=== PATIENT | female | born 1965 | race Caucasian/White ===

== ENCOUNTER → 2016-11-04 | Outpatient (CLI) | payer MEDICARE, MEDICAID ==
[~2016-11-04] MED LIST: ACET30TAB PO; CITALOPRAM PO; CLON0.5T PO; CLON1TAB PO; CYMBALTA PO; DIVALPROEX PO; DULO30CA PO; EYE0.0254 OU; HYDR-3719 PO; KEFL500C7 PO; LYRI150C PO; NORCOTAB PO; SOMA350T PO; TIZANIDINE PO; TRAZ100T2 PO; TRAZ100T4 PO; motrin PO; vicodin PO
[2016-11-04 11:55] LABS: BASO # 0.1 K/mm3 (0.0-0.2); BASO % 0.6 % (0.0-1.0); EOS # 0.1 K/mm3 (0.0-0.50); EOS % 1.1 % (0.0-3.0); LARGE UNSTAINED CELL # 0.3 K/mm3 (0.0-0.4); LARGE UNSTAINED CELL % 2.2 % (0.0-4.0); LYMPH % 32.5 % (24.0-44.0); MEAN CORPUSCULAR HEMOGLOBIN 32.6 pg (27.0-33.0); MEAN CORPUSCULAR HGB CONC 33.4 g/dl (32.0-36.5); MEAN CORPUSCULAR VOLUME 97.5 fl (80.0-96.0); MONO # 0.4 K/mm3 (0.0-0.8); MONO % 3.6 % (0.0-5.0); NEUTROPHILS # 7.3 K/mm3 (1.8-7.7); NEUTROPHILS % 59.9 % (36.0-66.0); PLATELET COUNT, AUTOMATED 258 k/mm3 (150-450); RED CELL DISTRIBUTION WIDTH 12.8 % (11.5-14.5); WHITE BLOOD COUNT 12.2 K/mm3 (4.0-10.0)
[2016-11-04 12:15] LABS: ALBUMIN 3.4 GM/DL (3.2-5.2); ALBUMIN/GLOBULIN RATIO 0.89 (1.00-1.93); ALKALINE PHOSPHATASE 72 U/L (45-117); ALT/SGPT 24 U/L (12-78); ANION GAP 7 MEQ/L (8-16); AST/SGOT 10 U/L (15-37); BILIRUBIN,TOTAL 0.3 MG/DL (0.2-1.0); BLOOD UREA NITROGEN 19 MG/DL (7-18); CALCIUM LEVEL 9.3 MG/DL (8.5-10.1); CARBON DIOXIDE LEVEL 29 MEQ/L (21-32); CHLORIDE LEVEL 107 MEQ/L (98-107); GLOMERULAR FILTRATION RATE > 60.0 (>51); GLUCOSE, FASTING 91 MG/DL (70-105); POTASSIUM SERUM 4.9 MEQ/L (3.5-5.1); SODIUM LEVEL 143 MEQ/L (136-145); TOTAL PROTEIN 7.2 GM/DL (6.4-8.2)
--- NOTE | 2016-11-04 17:26 | ECGEPIP ---
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 Left axis deviation. Prominent voltage in aVL LVH by Kurt criteria Slow precordial R-wave progression. Nonspecific inferior/apical ST/T-wave abnormalities. No change from 03/27/14. Electronically Signed On 11-04-2016 17:26:39 EST by Reji Bliss
== END ==
LOC: M LAB 11:07
PROVIDERS: ATTEND Podiatrist
DX: Z01.810 Encounter for preprocedural cardiovascular examination (principal); R94.31 Abnormal electrocardiogram [ECG] [EKG]

== ENCOUNTER → 2016-11-17 | Day surgery (SDC) | payer MEDICARE, MEDICAID ==
[~2016-11-17] VITALS: Ht 160 cm; Wt 80.7 kg
[~2016-11-17] MED LIST changes: +BACITRACIN PWD 50,000 UNITS VIAL As Ordered ONE; +BACITRACIN PWD 50,000 UNITS VIAL IR ONE; +BUPIVACAINE HCL 0.5% 30 ML VIAL As Ordered ONE; +BUPIVACAINE HCL 0.5% 30 ML VIAL SC ONE; +KETAMINE HCL 200 MG/20 ML VIAL As Ordered ONE; +KETOROLAC 60 MG/2 ML VIAL (J1885) As Ordered ONE; +LIDOCAINE 2% INJ 100 MG/5 ML SDV (FOR ANES.) As Ordered ONE; +LIDOCAINE 2% MDV 20 ML VIAL As Ordered ONE; +LIDOCAINE 2% MDV 20 ML VIAL SC ONE; +LR 1,000 ML IV SCH; +MIDAZOLAM INJ 2 MG/2 ML VIAL (J2250) As Ordered ONE; +NEOSPORIN GU IRRIG 20 ML VIAL IR ONE; +ONDANSETRON 4MG/2ML VIAL (J2405) As Ordered ONE; +PERCOCET 5MG/325MG TAB PO PRN; +PROPOFOL 200 MG/20 ML VIAL As Ordered ONE; +ceFAZolin SOD 1 GM in D5W MINI-BAG PLUS 50 ML IV ONE; +dexameTHASONE 4 MG/ML 1ML VIAL (J1100) As Ordered ONE; +dexameTHASONE 4 MG/ML 1ML VIAL (J1100) XX ONE; +diphenhydrAMINE INJ 50MG/ML VIAL (J1200) IV PRN; +fentaNYL 100 MCG/2 ML INJECTION (J3010) As Ordered ONE
--- NOTE | 2016-11-17 12:29 | REP ---
REASON: Status post [place] infraction correction. COMPARISON: 05/18/2016. There is a reparative plug seen in the head of the second metatarsal resurfacing the proximal portion of the second metatarsophalangeal joint. Signed by Holger Lin DO 11/18/2016 11:15 A
[2016-11-17 13:15] VITALS: BP 134/80
--- NOTE | 2016-11-17 14:05 | RO ---
DATE OF PROCEDURE: 11/17/2016 PREOPERATIVE DIAGNOSIS: [place]'s infraction second metatarsal phalangeal joint left foot. POSTPROCEDURE DIAGNOSIS: [place]'s infraction second metatarsal phalangeal joint left foot. PROCEDURE: Debridement and insertion of Arthrosurface HemiCAP implant size 12.12 second metatarsal left foot. SURGEON: Reji Winter DPM COAL FEEDER OPERATOR: None. ANESTHESIA: Local MAC IRRIGATION: Dilute bacitracin, neomycin and polymyxin B solution. HEMOSTASIS: Ankle tourniquet at 200 mmHg for 40 minutes. IMPLANT UTILIZED: 12/12 Arthrosurface HemiCAP implant. DESCRIPTION OF PROCEDURE: On 11/17/2016, this 51-year-old white female was taken from her hospital room to the operating room and placed on the operating room table in a supine position. Following the induction of IV sedation, local and regional anesthesia, the left lower extremity was prepped and draped in the usual aseptic manner. Attention was directed to the patient's left foot where the following procedure was performed. DEBRIDEMENT AND INSERTION OF ARTHROSURFACE HEMICAP IMPLANT 12/12 SECOND METATARSAL LEFT FOOT: Attention was directed to the patients foot where a 4 cm incision was placed over the second metatarsal phalangeal joint. Dissection was carried down and the extensor tendons were retracted in a lateral direction. A linear capsulotomy was performed in the same plane as the original skin incision and exposure was delivered to the dorsal surface of the second metatarsal phalangeal joint. Spurring was noted on the proximal phalanx which was rongeured smooth. A small joint loose body was noted on the dorsal lateral aspect of the joint which was removed. Utilizing a guidewire, the guidewire with fluoroscopy control was placed down the shaft of the second metatarsal. This was confirmed with arthroscopy. Utilizing a 7 mm drill bit, the medullary shaft was reamed. Utilizing a 1.5 mm reamer, the surface was reamed and utilizing a trial spacer adequate fit was noted on the second metatarsal and the remaining spurring around the joint surface was debrided and then filed with a hand held rasp. The wound was flushed with copious amounts of dilute bacitracin, neomycin and polymyxin B solution. A 12/12 Arthrosurface HemiCAP implant was then placed into the post and inserted. Adequate motion was noted of the second metatarsal phalangeal joint. The wound was flushed with copious amounts of dilute bacitracin, neomycin and polymyxin B solution. The capsule was then coapted and maintained with #3-0 Vicryl in a simple interrupted type fashion. Subcutaneous tissue coapted and maintained utilizing #4-0 Monocryl in a simple interrupted type fashion. The skin incision was coapted and maintained using #4-0 Prolene in a simple interrupted and horizontal mattress type fashion. Attention was directed towards bandaging where a sterile compressive bandage was applied consisting of Adaptic, 4x4s, 4x4 splints, Ludy, Kerlix and Coban. The ankle pneumatic tourniquet was rapidly deflated and instantaneous capillary filling time was noted in digits 1- 5 of the patients left foot. The patient having apparently tolerated the surgical procedure well was taken from the OR to the recovery room with vital signs stable and the patient afebrile for further monitoring by the anesthesia department. All surgical specimens removed during the operative procedure were sent to pathology for gross and microscopic examination. Postoperative instructions will be given upon discharge. MICHELLE
== END | disposition home or self-care (01) ==
LOC: M SDC 08:23
PROVIDERS: ATTEND Podiatrist
DX: M92.72 Juvenile osteochondrosis of metatarsus, left foot (principal); E78.5 Hyperlipidemia, unspecified; L40.9 Psoriasis, unspecified; F41.9 Anxiety disorder, unspecified; F32.9 Major depressive disorder, single episode, unspecified; Z79.899 Other long term (current) drug therapy; Z87.891 Personal history of nicotine dependence
CPT/HCPCS: 28899; 73630; 88300; 97116; C1776; G8978; G8979; G8980; J0690; J1100; J1200; J1885; J2250; J2405; J3010

== ENCOUNTER 2017-01-04 19:43 | Emergency (ER) | payer MEDICARE, MEDICAID ==
[~2017-01-04] VITALS: Ht 157.5 cm; Wt 75.7 kg
[~2017-01-04 19:43] MED LIST changes: -BACITRACIN PWD 50,000 UNITS VIAL As Ordered ONE; -BACITRACIN PWD 50,000 UNITS VIAL IR ONE; -BUPIVACAINE HCL 0.5% 30 ML VIAL As Ordered ONE; -BUPIVACAINE HCL 0.5% 30 ML VIAL SC ONE; -KETAMINE HCL 200 MG/20 ML VIAL As Ordered ONE; -KETOROLAC 60 MG/2 ML VIAL (J1885) As Ordered ONE; -LIDOCAINE 2% INJ 100 MG/5 ML SDV (FOR ANES.) As Ordered ONE; -LIDOCAINE 2% MDV 20 ML VIAL As Ordered ONE; -LIDOCAINE 2% MDV 20 ML VIAL SC ONE; -LR 1,000 ML IV SCH; -MIDAZOLAM INJ 2 MG/2 ML VIAL (J2250) As Ordered ONE; -NEOSPORIN GU IRRIG 20 ML VIAL IR ONE; -ONDANSETRON 4MG/2ML VIAL (J2405) As Ordered ONE; -PERCOCET 5MG/325MG TAB PO PRN; -PROPOFOL 200 MG/20 ML VIAL As Ordered ONE; -ceFAZolin SOD 1 GM in D5W MINI-BAG PLUS 50 ML IV ONE; -dexameTHASONE 4 MG/ML 1ML VIAL (J1100) As Ordered ONE; -dexameTHASONE 4 MG/ML 1ML VIAL (J1100) XX ONE; -diphenhydrAMINE INJ 50MG/ML VIAL (J1200) IV PRN; -fentaNYL 100 MCG/2 ML INJECTION (J3010) As Ordered ONE
[2017-01-04] MEDS ORDERED: PREDOPD OD (19:52)
[2017-01-04] MEDS ORDERED: OMEP40CA2 PO (19:52)
[2017-01-04] MEDS ORDERED: PERCOCET 5MG/325MG TAB PO ONE (21:00)
--- NOTE | 2017-01-04 21:50 | REPUSA ---
CT of the cervical spine Clinical history: Pain, fall. Technique: Multiple axial CT images were obtained through the cervical spine without administration o f contrast. Coronal and sagittal 3-D reconstructed images were also obtained. Comparison: None. Findings: The cervical vertebral bodies are in satisfactory positioning and alignment. No fractures or dislocat ions are demonstrated. The odontoid process is intact. There is a moderate disc osteophyte complex wi th degenerative disc disease at C6/C7. Intervertebral disc spaces are otherwise well-maintained. The re is no evidence of facet subluxation. The neural foramen appear grossly patent. The cervical crania l junction is intact. The cervical spinal canal demonstrates normal caliber and contour without evide nce of spinal stenosis. The surrounding soft tissues are within normal limits. Impression: No acute fracture or osseous abnormality. Moderate disc osteophyte complex at C6/C7.
[2017-01-04] MEDS ORDERED: IBUP600T26 PO (22:19)
[2017-01-04 22:43] VITALS: BP 133/69
--- NOTE | 2017-01-05 08:10 | REP ---
Left wrist series: Four views. History: Injury in a fall. Findings: Four views of the left wrist demonstrate mild osteoarthritic spurring at the first carpometacarpal articulation. There is a tiny accessory ossicle adjacent to the ulnar styloid. There is minimal radiocarpal spurring and irregularity. No fracture or subluxation is seen. Impression: No fracture noted. Minimal osteoarthritic spurring. Signed by Jacques Phelan MD 01/05/2017 01:37 P
--- NOTE | 2017-01-05 08:11 | REP ---
Left foot series: Four views. History: Injury in a fall. Comparison left foot radiographs are from November 17, 2016. Findings: The distal end of the second metatarsal has been replaced with a prosthetic hemiarthroplasty. There is mild spurring at the base of the second proximal phalanx. There is no evidence of fracture or subluxation. An accessory navicular ossicle is seen. Impression: No acute bony abnormality. Signed by Jacques Phelan MD 01/05/2017 01:37 P
== END 2017-01-04 22:49 | disposition home or self-care (01) ==
LOC: M ED 20:53
DX: T14.8 Other injury of unspecified body region (principal); V19.9XXA Pedal cyclist (driver) (passenger) injured in unspecified traffic accident, initial encounter; Y92.410 Unspecified street and highway as the place of occurrence of the external cause; Y93.9 Activity, unspecified; Y99.9 Unspecified external cause status; Z87.891 Personal history of nicotine dependence; M25.78 Osteophyte, vertebrae; M18.12 Unilateral primary osteoarthritis of first carpometacarpal joint, left hand; Z79.899 Other long term (current) drug therapy; Z88.5 Allergy status to narcotic agent; Z91.89 Other specified personal risk factors, not elsewhere classified

== ENCOUNTER 2017-06-01 06:33 | Day surgery (SDC) | payer MEDICARE, MEDICAID ==
[~2017-06-01] VITALS: Ht 160 cm; Wt 80.7 kg
[~2017-06-01 06:33] MED LIST changes: -EYE0.0254 OU; +EYE0.0259 OU; +IBUP-1022 PO; +KEFL500C17 PO; -KEFL500C7 PO; +OMEP40CA2 PO; +PREDOPD OD; +TRAZ-136 PO; -TRAZ100T4 PO
[2017-06-01] MEDS ORDERED: LR 1,000 ML IV SCH ×2 (06:45→09:00)
[2017-06-01] MEDS ORDERED: LIDOCAINE 2% MDV 20 ML VIAL As Ordered ONE (06:47)
[2017-06-01] MEDS ORDERED: BUPIVACAINE HCL 0.5% 30 ML VIAL As Ordered ONE (06:47)
[2017-06-01] MEDS ORDERED: dexameTHASONE 4 MG/ML 1ML VIAL (J1100) As Ordered ONE (06:48)
[2017-06-01] MEDS ORDERED: NEOSPORIN GU IRRIG 20 ML VIAL As Ordered ONE (06:49)
[2017-06-01] MEDS ORDERED: BACITRACIN PWD 50,000 UNITS VIAL As Ordered ONE (06:49)
[2017-06-01] MEDS ORDERED: MIDAZOLAM INJ 2 MG/2 ML VIAL (J2250) As Ordered ONE (07:42)
[2017-06-01] MEDS ORDERED: fentaNYL 100 MCG/2 ML INJECTION (J3010) As Ordered ONE (07:43)
[2017-06-01] MEDS ORDERED: PROPOFOL 200 MG/20 ML VIAL As Ordered ONE ×2 (07:46→07:53)
[2017-06-01] MEDS ORDERED: LIDOCAINE 2% INJ 100 MG/5 ML SDV (FOR ANES.) As Ordered ONE (07:46)
[2017-06-01] MEDS ORDERED: PERCOCET 5MG/325MG TAB PO PRN (09:00)
[2017-06-01] MEDS ORDERED: fentaNYL 100 MCG/2 ML INJECTION (J3010) IV PRN (09:00)
[2017-06-01] MEDS ORDERED: HYDROmorphone HCL 1 MG/ML SYRINGE (J1170) IV PRN (09:00)
[2017-06-01] MEDS ORDERED: ONDANSETRON 4MG/2ML VIAL (J2405) IV PRN (09:00)
[2017-06-01 09:15] VITALS: BP 175/83
--- NOTE | 2017-06-01 12:20 | RO ---
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 PROCEDURE PERFORMED: Excision of neuroma 3rd intermetatarsal space, left foot. SURGEON: Reji Winter DPM TAX ATTORNEY: None. ANESTHESIA: Local, monitored anesthesia care (MAC). IRRIGATION: Dilute bacitracin, neomycin, and polymyxin B solution. Ankle pneumatic tourniquet on the left ankle at 225 mmHg for 26 minutes. DESCRIPTION OF PROCEDURE: Description of operation: On 06/01/2017, this 52-year-old white female was taken from her hospital room to the operating room and placed on the operating table in supine position. Following the induction of intravenous (IV) sedation, local and regional anesthesia, left lower extremity was prepped and draped in the usual aseptic manner. Ankle pneumatic tourniquet was rapidly inflated. Left lower extremity was returned to the operating table, sterile draping was completed, and the following procedure was performed: EXCISION OF NEUROMA, 3RD INTERMETATARSAL SPACE, LEFT FOOT: Attention was directed to the patient's 3rd intermetatarsal space, where a 4 cm incision was placed in the 3rd interspace. Dissection was then carried down, and all venous structures that crossed the operative wound were clamped, cut, ligated, electrocoagulated as necessary. Care was taken to retract any dorsal cutaneous nerves out of the wound. The deep transverse intermetatarsal ligament was then transected. There was some slight swelling noted of the 3rd inner digital nerve with neuroma formation. This was traced into its terminal digital branches and to the respective 3rd and 4th digit and transected. It was then traced in a proximal direction to approximately the middle of the 3rd metatarsal and transected. This was removed and sent to pathology for gross and microscopic examination. The wound was flushed with copious amounts of dilute bacitracin, neomycin, and polymyxin B solution. Skin was closed with #2-0 Monocryl in a simple interrupted type fashion. Skin was coapted and maintained with #5-0 Monocryl in a continuous subcuticular type fashion. This was additionally reinforced with Steri-Strips. Approximately 4 mg of dexamethasone sodium phosphate was instilled proximal to the surgical site. Attention was directed towards bandaging, where a sterile compressive bandage was applied consisting of Adaptic, 4 x 4's, 4 x 4 splints, Ludy, Kerlix, and Coban. Ankle pneumonic tourniquet was rapidly deflated. Instantaneous capillary filling time was noted in digits 1 through 5 of the patient's left foot. Patient, having apparently tolerated surgical procedure well, was taken from the operating room (OR) to the recovery room, vital signs stable, patient afebrile, for further monitoring by the anesthesia department. All surgical specimens removed during the operative procedure, sent to pathology for gross and microscopic examination. Postoperative instructions given upon discharge.
== END 2017-06-01 09:25 | disposition home or self-care (01) ==
LOC: M SDC 06:33
PROVIDERS: ATTEND Podiatrist
DX: G57.62 Lesion of plantar nerve, left lower limb (principal); K21.9 Gastro-esophageal reflux disease without esophagitis; E78.5 Hyperlipidemia, unspecified; L40.8 Other psoriasis; F41.9 Anxiety disorder, unspecified; Z79.899 Other long term (current) drug therapy; Z88.8 Allergy status to other drugs, medicaments and biological substances
CPT/HCPCS: 28080; 88304; J1100; J2250; J3010

== ENCOUNTER 2017-09-01 08:53 | Emergency (ER) | payer MEDICARE, MEDICAID ==
[~2017-09-01] VITALS: Ht 157.5 cm; Wt 84.5 kg
[2017-09-01] MEDS ORDERED: DIVA250T (09:18)
[2017-09-01] MEDS ORDERED: DIVA125C5 PO (09:18)
[2017-09-01] MEDS ORDERED: BACL10TA2 (09:18)
[2017-09-01] MEDS ORDERED: KETOROLAC 30 MG/ML VIAL (J1885) IV ONE (09:30)
[2017-09-01] MEDS ORDERED: METOCLOPRAMIDE HCL LIQUID 10 MG/10 ML UDC PO ONE (09:30)
[2017-09-01] MEDS ORDERED: NS 1,000 ML IV ONE (09:30)
--- NOTE | 2017-09-01 10:37 | REP ---
Lumbar spine series: Five views. History: Injury in a fall. Back pain. Comparison CT study of the lumbar spine is from January 13, 2015. Findings: Frontal radiograph demonstrates a power plant for dorsal column stimulator projecting in the left mid abdomen. There are sutures in the pelvis bilaterally. Psoas margins are symmetric. Bowel gas pattern is unremarkable. Lumbar vertebral body heights are preserved. There is mild disc space narrowing at L3-4 with anterior discogenic spurring. Mild spurring is seen at 4-5 and 5-1 as well. There is no evidence of spondylolysis or spondylolisthesis. Pedicles and posterior elements are intact. Mild facet hypertrophy is noted bilaterally at L5-S1. No significant change from the findings on comparison CT study. Impression: Mild degenerative spondylosis changes. No fracture or collapse is seen. Signed by Jacques Phelan MD 09/01/2017 10:58 A
--- NOTE | 2017-09-01 10:37 | REP ---
AP pelvis: Single view. History: Injury in a fall. Findings: Bony pelvic ring is intact. There are sutures in the pelvis bilaterally. No pelvic or sacral fracture is seen. No hip fracture is noted. Visualized bowel gas pattern is unremarkable. Impression: No fracture seen. Signed by Jacques Phelan MD 09/01/2017 10:58 A
[2017-09-01] MEDS ORDERED: ZOFR4TAB3 PO (11:05)
[2017-09-01] MEDS ORDERED: NAPR500T PO (11:05)
[2017-09-01 11:07] VITALS: BP 131/84
== END 2017-09-01 11:23 | disposition home or self-care (01) ==
LOC: M ED 08:53
DX: S39.012A Strain of muscle, fascia and tendon of lower back, initial encounter (principal); G43.909 Migraine, unspecified, not intractable, without status migrainosus; Z87.891 Personal history of nicotine dependence; Z96.9 Presence of functional implant, unspecified; K92.9 Disease of digestive system, unspecified; M54.9 Dorsalgia, unspecified; M54.2 Cervicalgia; F41.9 Anxiety disorder, unspecified; F32.9 Major depressive disorder, single episode, unspecified; Z79.899 Other long term (current) drug therapy; Z88.5 Allergy status to narcotic agent; Z91.89 Other specified personal risk factors, not elsewhere classified
CPT/HCPCS: 72110; 72190; 81001; 96374; 99284; J1885

== ENCOUNTER 2017-11-04 12:16 | Day surgery (SDC) | payer MEDICARE, MEDICAID ==
[2017-11-04] MEDS ORDERED: NS 1,000 ML IV (13:00)
[2017-11-04] MEDS ORDERED: PROPOFOL 200 MG/20 ML VIAL As Ordered ×2 (13:38→14:25)
[2017-11-04] MEDS ORDERED: ONDANSETRON 4MG/2ML VIAL (J2405) As Ordered (13:48)
== END 2017-11-04 15:05 | disposition home or self-care (01) ==
LOC: M OPP 12:16
DX: K64.8 Other hemorrhoids (principal); K52.9 Noninfective gastroenteritis and colitis, unspecified; K63.3 Ulcer of intestine; D12.2 Benign neoplasm of ascending colon; E78.00 Pure hypercholesterolemia, unspecified; K21.9 Gastro-esophageal reflux disease without esophagitis; F41.9 Anxiety disorder, unspecified; F32.9 Major depressive disorder, single episode, unspecified; G43.909 Migraine, unspecified, not intractable, without status migrainosus; M50.30 Other cervical disc degeneration, unspecified cervical region; E55.9 Vitamin D deficiency, unspecified; M51.35 Other intervertebral disc degeneration, thoracolumbar region; R06.83 Snoring; Z90.710 Acquired absence of both cervix and uterus; Z97.8 Presence of other specified devices
CPT/HCPCS: 45380

== ENCOUNTER 2017-11-09 18:40 | Emergency (ER) | payer MEDICARE, MEDICAID ==
[2017-11-09] MEDS: KETOROLAC TROMETHAMINE 10 MG TAB PO (19:38)
[2017-11-09] MEDS: CIPRODEX OTIC SUSP 7.5ML AD (19:51)
== END 2017-11-09 20:00 | disposition home or self-care (01) ==
LOC: M ED 18:40
DX: H66.011 Acute suppurative otitis media with spontaneous rupture of ear drum, right ear (principal); H60.91 Unspecified otitis externa, right ear; Z88.5 Allergy status to narcotic agent; Z91.048 Other nonmedicinal substance allergy status; Z87.891 Personal history of nicotine dependence
CPT/HCPCS: 99282

== ENCOUNTER → 2018-04-20 | Outpatient (CLI) | payer MEDICARE, MEDICAID ==
[2018-04-20 15:09] LABS: THYROID STIMULATING HORMONE 0.686 uIU/ML (0.358-3.740)
[2018-04-21 08:56] LABS: THYROID PEROXIDASE ANTIBODY < 28.0 U/ML (<60.0)
[2018-04-21 10:41] LABS: CRYOGLOBULINS NEGATIVE (NEGATIVE)
[2018-04-21 14:15] LABS: ANTINUCLEAR ANTIBODIES DIRECT Negative (Negative)
[2018-04-21 15:44] LABS: COLD AGGLUTININS NEGATIVE (NEGATIVE)
[2018-04-25 00:07] LABS: IGE RECEPTOR ABY 1 1.2 (<10)
== END ==
LOC: M LAB 14:06
DX: R53.81 Other malaise (principal)
CPT/HCPCS: 82595

== ENCOUNTER 2019-04-17 11:23 | Day surgery (SDC) | payer MEDICARE, MEDICAID ==
[~2019-04-17] VITALS: Ht 160 cm; Wt 87.0 kg
[~2019-04-17 11:23] MED LIST changes: +ACET-716 PO; -ACET30TAB PO; +AMIT10TA PO; +AMOX500C PO; +ARIP1TAB6 PO; +ATOR1TAB19 PO; +BACL10TA2; +BIOT1CAP2 PO; +CIPRODEX AD; -CLON1TAB PO; +CLON1TAB8 PO; +CYMB60CA3 PO; +D3 H10002 PO; +DIVA1CAP PO; +DIVA250T67 PO; -DULO30CA PO; +DULO30CA9 PO; +EPIN0.3I11; +HYDR-3715 PO; +HYDR50TA70 PO; +IBUP80TA PO; +MIRT1TAB PO; +MULTCAP PO; +NAPR-837 PO; -NORCOTAB PO; +NS 1,000 ML IV ONE; -TRAZ-136 PO; +TRAZ-163 PO; +ZOFR4TAB14 PO
[2019-04-17] MEDS ORDERED: PROPOFOL 200 MG/20 ML VIAL As Ordered ONE (12:07)
[2019-04-17] MEDS ORDERED: LIDOCAINE 2% INJ 100 MG/5 ML SDV (FOR ANES.) As Ordered ONE (12:07)
[2019-04-17] MEDS ORDERED: fentaNYL 100 MCG/2 ML INJECTION (J3010) As Ordered ONE (12:22)
--- NOTE | 2019-04-17 13:14 | ROOR ---
Patient Name: Savanna Jones Procedure Date: 04/17/2019 12:30 PM Date of : 1965 Age: 54 Room: [facility] Gender: Female Note Status: Finalized Procedure: Upper GI endoscopy Indications: Heartburn, Suspected gastro-esophageal reflux disease Providers: Dejan Macedo MD Referring MD: Nabila FENTON MD Requesting Provider: Medicines: Monitored Anesthesia Care Complications: No immediate complications. Procedure: Pre-Anesthesia Assessment: - Prior to the procedure, a History and Physical was performed, and patient medications and allergies were reviewed. The patient is competent. The risks and benefits of the procedure and the sedation options and risks were discussed with the patient. All questions were answered and informed consent was obtained. Patient identification and proposed procedure were verified by the physician, the nurse and the anesthesiologist in the procedure room. Mental Status Examination: alert and oriented. Airway Examination: normal oropharyngeal airway and neck mobility. Respiratory Examination: clear to auscultation. CV Examination: normal. Prophylactic Antibiotics: The patient does not require prophylactic antibiotics. Prior Anticoagulants: The patient has taken no previous anticoagulant or antiplatelet agents. ASA Grade Assessment: II - A patient with mild systemic disease. After reviewing the risks and benefits, the patient was deemed in satisfactory condition to undergo the procedure. The anesthesia plan was to use monitored anesthesia care (MAC). Immediately prior to administration of medications, the patient was re-assessed for adequacy to receive sedatives. The heart rate, respiratory rate, oxygen saturations, blood pressure, adequacy of pulmonary ventilation, and response to care were monitored throughout the procedure. The physical status of the patient was re-assessed after the procedure. The Endoscope was introduced through the mouth, and advanced to the second part of duodenum. The upper GI endoscopy was accomplished without difficulty. The patient tolerated the procedure well. Findings: LA Grade B (one or more mucosal breaks greater than 5 mm, not extending between the tops of two mucosal folds) esophagitis with no bleeding was found in the distal esophagus. Biopsies were taken with a cold forceps for histology. Verification of patient identification for the specimen was done by the physician and nurse using the patient's name, date and medical record number. Estimated blood loss was minimal. The Z-line was irregular and was found 40 cm from the incisors. Patchy mild inflammation characterized by congestion (edema), erythema and granularity was found in the gastric body and in the gastric antrum. Biopsies were taken with a cold forceps for Helicobacter pylori testing. The duodenal bulb and second portion of the duodenum were normal. Biopsies for histology were taken with a cold forceps for evaluation of celiac disease. Incidental finding of nodular lesion in vocal cords noted. Impression: - LA Grade B reflux esophagitis. Rule out Welch's esophagus. Biopsied. - Z-line irregular, 40 cm from the incisors. - Gastritis. Biopsied. - Normal duodenal bulb and second portion of the duodenum. Biopsied. - Incidental finding of nodular lesion in vocal cords noted. Recommendation: - Patient has a contact number available for emergencies. The signs and symptoms of potential delayed complications were discussed with the patient. Return to normal activities tomorrow. Written discharge instructions were provided to the patient. - Resume previous diet. - Continue present medications. - Follow an antireflux regimen. - Await pathology results. - Telephone GI clinic for pathology results in 2 weeks. - Refer to an ENT specialist in 2 weeks. - Return to primary care physician. Dejan Macedo MD Dejan Macedo MD 04/17/2019 1:13:42 PM Electronically signed by Dejan Macedo MD Number of Addenda: 0 Note Initiated On: 04/17/2019 12:30 PM Estimated Blood Loss: Estimated blood loss was minimal.
[2019-04-17 13:25] VITALS: BP 133/83
== END 2019-04-17 13:27 | disposition home or self-care (01) ==
LOC: M OPP 11:23
PROVIDERS: ATTEND Internal Medicine Gastroenterology
DX: R12 Heartburn (principal); K21.0 Gastro-esophageal reflux disease with esophagitis; K22.8 Other specified diseases of esophagus; J38.2 Nodules of vocal cords; K29.70 Gastritis, unspecified, without bleeding; F32.9 Major depressive disorder, single episode, unspecified; F41.9 Anxiety disorder, unspecified; G47.00 Insomnia, unspecified; E55.9 Vitamin D deficiency, unspecified; E78.5 Hyperlipidemia, unspecified; K62.5 Hemorrhage of anus and rectum; M19.90 Unspecified osteoarthritis, unspecified site; M54.89 Other dorsalgia; L40.9 Psoriasis, unspecified; R41.3 Other amnesia; G43.909 Migraine, unspecified, not intractable, without status migrainosus; R06.83 Snoring; G47.30 Sleep apnea, unspecified; Z97.8 Presence of other specified devices; Z87.891 Personal history of nicotine dependence; Z88.5 Allergy status to narcotic agent; Z88.8 Allergy status to other drugs, medicaments and biological substances; Z79.899 Other long term (current) drug therapy
CPT/HCPCS: 43239; 88305; J3010

== ENCOUNTER 2019-05-11 07:48 | Day surgery (SDC) | payer MEDICARE, MEDICAID ==
[~2019-05-11] VITALS: Ht 160 cm; Wt 87.5 kg
[~2019-05-11 07:48] MED LIST changes: -NS 1,000 ML IV ONE
[2019-05-11] MEDS ORDERED: PROPOFOL 200 MG/20 ML VIAL As Ordered ONE (08:56)
[2019-05-11] MEDS ORDERED: ONDANSETRON 4MG/2ML VIAL (J2405) As Ordered ONE ×2 (08:56→12:18)
[2019-05-11] MEDS ORDERED: ROCURONIUM BROMIDE 50 MG/5 ML VIAL As Ordered ONE (08:56)
[2019-05-11] MEDS ORDERED: fentaNYL 250 MCG/5 ML INJECTION (J3010) As Ordered ONE (08:56)
[2019-05-11] MEDS ORDERED: MIDAZOLAM INJ 2 MG/2 ML VIAL (J2250) As Ordered ONE (08:56)
[2019-05-11] MEDS ORDERED: LIDOCAINE 2% INJ 100 MG/5 ML SDV (FOR ANES.) As Ordered ONE (08:56)
[2019-05-11] MEDS: LR 1,000 ML IV ONE (09:00)
[2019-05-11] MEDS ORDERED: dexameTHASONE 4 MG/ML 1ML VIAL (J1100) As Ordered ONE (09:01)
[2019-05-11] MEDS: LIDOCAINE W/EPINEPHRINE 1% 20ML VIAL As Ordered ONE (10:41)
[2019-05-11] MEDS ORDERED: GLYCOPYRROLATE INJ 0.2 MG/ML 2 ML VIAL As Ordered ONE (11:26)
[2019-05-11] MEDS ORDERED: ESMOLOL INJ 100MG/10ML VIAL As Ordered ONE (11:45)
[2019-05-11] MEDS: OXYMETAZOLINE NASAL SPRAY (AFRIN) As Ordered ONE (11:47)
[2019-05-11] MEDS: METHYLENE BLUE 0.5% (5MG/ML) 10 ML AMP (PROVAYBLUE)(Q9968 PER 1MG) As Ordered ONE (11:47)
[2019-05-11] MEDS ORDERED: ACETAMINOPHEN 1000MG 100ML IV BTL (OFIRMEV) (J0131 PER 10MG) As Ordered ONE (11:47)
[2019-05-11] MEDS ORDERED: hydrALAZINE INJ 20 MG/ML VIAL As Ordered ONE (11:49)
[2019-05-11] MEDS ORDERED: LABETALOL HCL 100 MG/20 ML VIAL As Ordered ONE (11:49)
[2019-05-11] MEDS ORDERED: SUGAMMADEX SODIUM 500 MG/5 ML VIAL (BRIDION) As Ordered ONE (11:57)
[2019-05-11] MEDS: ONDANSETRON 4MG/2ML VIAL (J2405) IV PRN (12:18)
[2019-05-11] MEDS ORDERED: ACETAMINOPHEN TAB 650MG DOSE (2X325MG) PO PRN (12:30)
[2019-05-11] MEDS ORDERED: LR 1,000 ML IV SCH (12:30)
[2019-05-11] MEDS ORDERED: fentaNYL 100 MCG/2 ML INJECTION (J3010) IV PRN (12:30)
[2019-05-11] MEDS: oxyCODONE 5MG TAB PO PRN (12:38)
[2019-05-11 14:45] VITALS: BP 131/73
--- NOTE | 2019-05-14 19:17 | RO ---
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 OPERATION PERFORMED: Micro suspension laryngoscopy with biopsy of the right true vocal cord as well as utilizing the microdebrider salon sales consultant on the lesion compatible with recurrent papilloma. SURGEON: Armond Villa Jr., MD HR ANALYST: ANESTHESIA: General via endotracheal tube, by Dr. Pelayo and CheoRCiciNEs. INDICATIONS FOR PROCEDURE: Hoarseness in a patient who has had a previous history of smoking, also a previous history of recurrent papilloma. PROCEDURE IN DETAIL: With the patient in the supine position after being induced and beta prepped and draped in usual fashion, intubated with #6 endotracheal tube, the patient was turned 90 degrees and then placed in a semi sitting position. A Major laryngoscope was placed in the vallecula. The patient tolerated this very well. Once this was in position, she did have copious secretions that were present. Once this was done and she was given Robinul they did slightly decrease, however, she required a little bit more. Once this was done and good visualization was identified, the microscope was brought into position and placed appropriately. Once this was done, biopsy of the specimen was sent with microcup forceps and then the salon sales consultant microdebrider was set up and then utilizing the microscope and careful dissection this was dissected out. There appeared to be a small sulcus in the right true vocal cord where some of this polypoid/papilloma lesion appeared to be present. This was skimmed documentation after the initial biopsy and then after complete shave was done, which showed excellent results. The patient tolerated the procedure well. Specimens were placed in a sock and there was a sock that was on the other one, however, this was very small and may be lost. Therefore, initial biopsy was done as well. Attention then was drawn to placing topical Afrin on the vocal cord to stop the bleeding. Should also mention that Afrin soaked pledget was placed below the vocal cords to try and prevent any flow of blood down into the trachea. The patient tolerated this procedure well. The bleeding had stopped and then, at this point, laryngeal tracheal anesthesia was applied and controlled. The patient was turned back over to the baggage smasher. Again, there are no problems. No complications. Estimated blood loss was trace.
== END 2019-05-11 14:50 | disposition home or self-care (01) ==
LOC: M SDC 07:48
PROVIDERS: ATTEND Otolaryngology
DX: J38.1 Polyp of vocal cord and larynx (principal); R49.0 Dysphonia; E78.00 Pure hypercholesterolemia, unspecified; K62.5 Hemorrhage of anus and rectum; K21.9 Gastro-esophageal reflux disease without esophagitis; R06.02 Shortness of breath; L40.9 Psoriasis, unspecified; F41.9 Anxiety disorder, unspecified; F32.9 Major depressive disorder, single episode, unspecified; G43.909 Migraine, unspecified, not intractable, without status migrainosus; G47.00 Insomnia, unspecified; R06.83 Snoring; G47.30 Sleep apnea, unspecified; Z88.5 Allergy status to narcotic agent; Z91.048 Other nonmedicinal substance allergy status; Z79.899 Other long term (current) drug therapy; Z87.820 Personal history of traumatic brain injury; Z90.710 Acquired absence of both cervix and uterus; Z98.51 Tubal ligation status; Z87.09 Personal history of other diseases of the respiratory system

== ENCOUNTER → 2020-03-31 | Outpatient (CLI) | payer MEDICARE, MEDICAID ==
[~2020-03-31] MED LIST changes: -EYE0.0259 OU; +ISOVUE-370 76% 100ML VIAL As Ordered ONE; +KETO5DRO28 OU; -OMEP40CA2 PO; +OMEP40CA97 PO; -TRAZ-163 PO; +TRAZ-257 PO
--- NOTE | 2020-03-31 09:11 | REPVR ---
PROCEDURE INFORMATION: Exam: CT Neck With Contrast Exam date and time: 03/31/2020 8:25 AM Age: 55 years old Clinical indication: Other: Larynx begin neoplasm TECHNIQUE: Imaging protocol: Computed tomography images of the neck with intravenous contrast. Radiation optimization: All CT scans at this facility use at least one of these dose optimization techniques: automated exposure control; mA and/or kV adjustment per patient size (includes targeted exams where dose is matched to clinical indication); or iterative reconstruction. Contrast material: ISOVUE 370; Contrast volume: 75 ml; Contrast route: INTRAVENOUS (IV); COMPARISON: CT Spine,cervical w/o contrast 01/04/2017 9:27 PM FINDINGS: Nasopharynx: Unremarkable. Oropharynx: Unremarkable. No significant tonsillar enlargement. Hypopharynx: Unremarkable. Larynx: Unremarkable. Normal epiglottis. Retropharyngeal space: Unremarkable. Submandibular/Parotid glands: Normal. Glands are normal in size. Thyroid: Normal. No enlarged or calcified nodules. Lymph nodes: Unremarkable. No lymphadenopathy. Trachea: Visualized trachea is unremarkable. Lungs: Left apical scarring. Mild paraseptal emphysema. Bones/joints: Degenerative disease and facet hypertrophy in the cervical spine. Stenosis of the spinal canal and neural foramina at C6-C7. IMPRESSION: No acute findings. Electronically signed by: Jaylan Harvey On 03/31/2020 09:10:59 AM
== END ==
LOC: M RAD 07:29
PROVIDERS: ATTEND Otolaryngology
DX: D14.1 Benign neoplasm of larynx (principal)
CPT/HCPCS: 70491; Q9967

== ENCOUNTER → 2020-08-01 | Outpatient (CLI) | payer MEDICARE, MEDICAID ==
[~2020-08-01] MED LIST changes: +BIOT50004 PO; +CETI10CH PO; +CLON-412 PO; +HUMI40KI2 SC; -ISOVUE-370 76% 100ML VIAL As Ordered ONE; +PROP60TA14 PO
== END ==
LOC: M LABSMTC 11:44
PROVIDERS: ATTEND Anesthesiology
DX: Z01.812 Encounter for preprocedural laboratory examination (principal); Z20.828 Contact with and (suspected) exposure to other viral communicable diseases

== ENCOUNTER 2020-08-06 07:15 | Day surgery (SDC) | payer MEDICARE, MEDICAID ==
[~2020-08-06] VITALS: Ht 160 cm; Wt 100.6 kg
[~2020-08-06 07:15] MED LIST changes: +LR 1,000 ML IV ONE; +dexameTHASONE 4 MG/ML 1ML VIAL (J1100 PER 1MG) IV ONE
[2020-08-06] MEDS ORDERED: MIDAZOLAM INJ 2MG/2ML VIAL (J2250 PER 1MG) As Ordered ONE (08:18)
[2020-08-06] MEDS ORDERED: fentaNYL 250 MCG/5 ML INJECTION (J3010) As Ordered ONE (08:18)
[2020-08-06] MEDS ORDERED: LIDOCAINE 2% 100MG/5ML SDV (FOR ANES.) As Ordered ONE (08:19)
[2020-08-06] MEDS ORDERED: ROCURONIUM BROMIDE 50 MG/5 ML VIAL As Ordered ONE (08:19)
[2020-08-06] MEDS ORDERED: propofoL 200 MG/20 ML VIAL As Ordered ONE (08:19)
[2020-08-06] MEDS ORDERED: OXYMETAZOLINE 0.05% NASAL SPRAY (AFRIN) As Ordered ONE (08:23)
[2020-08-06] MEDS ORDERED: METHYLENE BLUE 0.5% (5MG/ML) 10 ML AMP (PROVAYBLUE) As Ordered ONE (08:23)
[2020-08-06] MEDS ORDERED: LIDOCAINE W/EPINEPHRINE 1% 20ML VIAL As Ordered ONE (08:23)
[2020-08-06] MEDS ORDERED: dexameTHASONE 4 MG/ML 1ML VIAL (J1100 PER 1MG) As Ordered ONE (08:55)
[2020-08-06] MEDS ORDERED: ONDANSETRON 4MG/2ML VIAL As Ordered ONE ×2 (09:10→11:00)
[2020-08-06] MEDS ORDERED: SUGAMMADEX SODIUM 500 MG/5 ML VIAL (BRIDION) As Ordered ONE (09:16)
[2020-08-06] MEDS ORDERED: LABETALOL 100MG/20ML VIAL As Ordered ONE (09:37)
[2020-08-06] MEDS ORDERED: hydrALAZINE 20MG/ML 1ML VIAL (J0360 PER 20MG) As Ordered ONE (09:47)
[2020-08-06] MEDS ORDERED: ACETAMINOPHEN 1000MG 100ML IV BTL (OFIRMEV) (J0131 PER 10MG) As Ordered ONE (10:14)
[2020-08-06] MEDS ORDERED: LR 1,000 ML IV SCH ×2 (11:15)
[2020-08-06] MEDS ORDERED: ONDANSETRON 4MG/2ML VIAL IV PRN (11:15)
[2020-08-06] MEDS ORDERED: oxyCODONE 5MG TAB PO PRN (11:15)
[2020-08-06] MEDS ORDERED: fentaNYL 100 MCG/2 ML INJECTION (J3010) IV PRN (11:15)
[2020-08-06] MEDS ORDERED: METOCLOPRAMIDE INJ 10MG/2ML VIAL (J2765 PER 1) IV PRN (12:00)
[2020-08-06 12:50] VITALS: BP 133/82
--- NOTE | 2020-08-09 13:32 | ECGEPIP ---
[facility] Test Date: 2020-08-06 Pat Name: ANGELA BEAULIEU Department: Room: - Gender: Female Coding Compliance Manager: [place] : 1965 Requested By: Lorne Velasquez Order Number: [id number] Reading MD: Subhash Avila Measurements Intervals [place] Rate: 69 P: 16 ID: [id number] QRS: -37 QRSD: 121 T: -5 QT: 396 QTc: 427 Interpretive Statements SINUS RHYTHM WITH SINUS ARRHYTHMIA MARKED LEFT AXIS DEVIATION MINIMAL VOLTAGE CRITERIA FOR LVH, CONSIDER NORMAL VARIANT POSSIBLE ANTERIOR MYOCARDIAL INFARCTION, PROBABLY OLD VS POOR R WAVE PROGRESSION Non specific ST/T abnormality Last tracing on 11/04/16, 11:28. Heart rate was 55 bpm. Electronically Signed on 08-09-2020 13:31:39 EST by Subhash Avila
--- NOTE | 2020-08-28 11:01 | RO ---
OPERATIVE NOTE DATE OF OPERATION: 08/06/2020 PREOPERATIVE DIAGNOSIS: Recurrent laryngeal papillomatosis. POSTOPERATIVE DIAGNOSIS: Recurrent laryngeal papillomatosis. PROCEDURE PERFORMED: Direct suspension microlaryngoscopy with CO2 laser ablation of the papilloma on the right larynx. OR NARRATION: The patient was identified in the preoperative holding and brought to the operating room in stable condition. In the supine position on the operating room table, the patient received general anesthesia followed by intubation with a laser safe endotracheal tube. The patient was prepped and draped in the usual fashion for the laser procedure. All personnel in the operating room wore the laser safe compatible glassware. The patient's head and neck regions were covered in a wet towel. Upper dentition was protected. Bimanual palpation of the oral tongue, base of tongue, lateral and posterior pharyngeal escamilla showed no evidence of discrete nodules. Using the Dedo-Pilling laryngoscope, the mucosa of the oral cavity, oropharynx, hypopharynx, and glottis were examined. Papillomatous lesion was noted over the right laryngeal area. At this time, the Dedo-Pilling laryngoscope was suspended to allow the maximum visualization of the right larynx. Papillomatous lesions were noted over the right anterior one-third of the vocal cords with some involvement of the false cords as well. A cottonoid pledget soaked in Afrin solution was placed in the subglottic region to protect the endotracheal tube cuff. At this time using the CO2 laser set at continuous mold six of the papillomatous lesions were successfully ablated. Complete hemostasis was observed at the end of the case. Sponge and instrument counts were correct at the end of the procedure. Estimated blood loss was less than 1 mL. General anesthesia was reversed, the patient was extubated, and brought to the recovery room in stable condition.
== END 2020-08-06 13:20 | disposition home or self-care (01) ==
LOC: M SDC 07:15
PROVIDERS: ATTEND Otolaryngology
DX: J38.1 Polyp of vocal cord and larynx (principal); E55.9 Vitamin D deficiency, unspecified; E78.00 Pure hypercholesterolemia, unspecified; F12.90 Cannabis use, unspecified, uncomplicated; F32.9 Major depressive disorder, single episode, unspecified; F41.9 Anxiety disorder, unspecified; G43.909 Migraine, unspecified, not intractable, without status migrainosus; G47.00 Insomnia, unspecified; G47.33 Obstructive sleep apnea (adult) (pediatric); K21.9 Gastro-esophageal reflux disease without esophagitis; M12.9 Arthropathy, unspecified; R06.83 Snoring; Z79.899 Other long term (current) drug therapy; Z88.5 Allergy status to narcotic agent; Z90.710 Acquired absence of both cervix and uterus; Z91.048 Other nonmedicinal substance allergy status; Z98.51 Tubal ligation status
CPT/HCPCS: 31540; 93005; 96374; 96375; J0131; J0360; J1100; J2250; J2405; J2765; J3010; Q9968

== ENCOUNTER → 2020-08-22 | Outpatient (CLI) | payer MEDICARE, MEDICAID ==
[~2020-08-22] MED LIST changes: -LR 1,000 ML IV ONE; -dexameTHASONE 4 MG/ML 1ML VIAL (J1100 PER 1MG) IV ONE
--- NOTE | 2020-08-22 12:48 | REP ---
INDICATION: PAIN IN LEFT KNEE COMPARISON: None TECHNIQUE: Five views FINDINGS: The compartments are symmetric and relatively well maintained. There is no acute fracture or destructive osseous lesion. There is an incidental mixed density proximal tibial diaphyseal bone lesion likely an enchondroma. IMPRESSION: No acute disease <Electronically signed by Holger Lin > 08/22/20 [id number]
== END ==
LOC: M RAD 11:26
PROVIDERS: ATTEND Family Medicine
DX: M25.562 Pain in left knee (principal)

== ENCOUNTER → 2020-10-10 | Outpatient (CLI) | payer MEDICARE, MEDICAID ==
[~2020-10-10] MED LIST changes: +CIPR7.5D5 AD; -CIPRODEX AD
== END ==
LOC: M PLARAD 15:42
PROVIDERS: ATTEND Physician Assistant Medical
DX: R51.9 Headache, unspecified (principal); S09 Other and unspecified injuries of head; R44.1 Visual hallucinations

== ENCOUNTER → 2020-10-16 | Outpatient (CLI) | payer MEDICARE, MEDICAID ==
[~2020-10-16] MED LIST changes: -CIPR7.5D5 AD; +CIPRODEX AD
--- NOTE | 2020-10-16 15:44 | REPVR ---
PROCEDURE INFORMATION: Exam: CT Head Without Contrast Exam date and time: 10/16/2020 3:16 PM Age: 55 years old Clinical indication: Mass, lump, or localized swelling; Head or scalp; Additional info: Localized swelling, mass and lump, head TECHNIQUE: Imaging protocol: Computed tomography of the head without contrast. Radiation optimization: All CT scans at this facility use at least one of these dose optimization techniques: automated exposure control; mA and/or kV adjustment per patient size (includes targeted exams where dose is matched to clinical indication); or iterative reconstruction. COMPARISON: No relevant prior studies available. FINDINGS: Brain: Normal. No hemorrhage. Unremarkable white matter. No mass effect. Cerebral ventricles: No ventriculomegaly. Bones/joints: Focal area of thickening and sclerosis noted in the left frontal calvarium measuring approximately 2.8 cm. The lesion is smooth in contour with no periosteal new bone formation. Sclerosis is predominantly located within the outer table with minimal extension into the medullary portion and inner table. Paranasal sinuses: Visualized sinuses are unremarkable. No fluid levels. Mastoid air cells: Visualized mastoid air cells are well aerated. Soft tissues: Unremarkable. IMPRESSION: 1. No acute findings. 2. 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
== END ==
LOC: M RAD 15:07
PROVIDERS: ATTEND Family Medicine
DX: R22.0 Localized swelling, mass and lump, head (principal)

== ENCOUNTER → 2020-11-14 | Outpatient (CLI) | payer MEDICARE, MEDICAID ==
[~2020-11-14] MED LIST changes: +CIPR7.5D5 AD; -CIPRODEX AD; +COSE1INJ SC; +VITMTA PO; +amovig INJ
== END ==
LOC: M LABSMTC 09:38
PROVIDERS: ATTEND Anesthesiology
DX: Z01.812 Encounter for preprocedural laboratory examination (principal); Z20.822 Contact with and (suspected) exposure to COVID-19

== ENCOUNTER 2020-11-19 10:04 | Day surgery (SDC) | payer MEDICARE, MEDICAID ==
[~2020-11-19] VITALS: Ht 160 cm; Wt 98.0 kg
[~2020-11-19 10:04] MED LIST changes: -AMIT10TA PO; +AMIT10TA7 PO; +LIDOCAINE 1% MDV 20ML VIAL SQ PRN; +LIDOCAINE 2% 100MG/5ML SDV (FOR ANES.) As Ordered ONE; +LR 1,000 ML IV ONE; +MIDAZOLAM INJ 2MG/2ML VIAL (J2250 PER 1MG) As Ordered ONE; +ceFAZolin SOD 2 GM in IV 1 EA IV ONE; +fentaNYL 100 MCG/2 ML INJECTION (J3010) As Ordered ONE; +propofoL 200 MG/20 ML VIAL As Ordered ONE
[2020-11-19] MEDS ORDERED: LIDOCAINE 1% MDV 20ML VIAL As Ordered ONE (13:02)
[2020-11-19] MEDS ORDERED: BUPIVACAINE HCL 0.5% 10ML VIAL As Ordered ONE (13:02)
[2020-11-19] MEDS ORDERED: PHENYLephrine 500MCG 5ML (100MCG/ML) SYRINGE As Ordered ONE (13:52)
[2020-11-19] MEDS ORDERED: HYDR-3713 PO (14:15)
[2020-11-19 14:20] VITALS: BP 117/66
[2020-11-21] MEDS ORDERED: CETI10CA2 PO (16:05)
[2020-11-21] MEDS ORDERED: ZYRTTAB8 PO (16:05)
--- NOTE | 2020-12-08 12:16 | RO ---
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 PROCEDURE: Left second metatarsal head excision and implant removal. SURGEON: Bryan Brito DPM. DIRECTOR OF SUSTAINABLE DESIGN: None. ANESTHESIA: Monitored anesthesia care with preop injection of 20 mL of 1:1 mixture of 1% lidocaine plain and 0.5% marcaine plain. ESTIMATED BLOOD LOSS: Minimal. MATERIALS: 3-0 Vicryl and 4-0 nylon. INJECTABLES: None. COMPLICATIONS: None. CONDITION: Stable. SPECIMENS: Right second metatarsal head and implant. INDICATIONS FOR PROCEDURE: Savanna Jones is a 55-year-old female who had previous metatarsal head implant to her second metatarsal due to metatarsal deformity. She states since the implant, she has had persistent pain and limited mobility. She presents today for removal of implant and removal of remaining metatarsal head. Patient side and site were identified and marked in the preoperative area. The consent was reviewed and obtained. The risks, complications, and alternatives to the procedure were explained to the patient in detail and all questions were anesthesia. DESCRIPTION OF PROCEDURE: The patient was brought to the operating room and placed on the operating room table in the supine position. Monitored anesthesia care was delivered by the anesthesia team. A preop injection of 20 DICTATION ENDS /verified/ml
== END 2020-11-19 15:30 | disposition home or self-care (01) ==
LOC: M SDC 10:04
PROVIDERS: ATTEND Podiatrist Foot & Ankle Surgery
DX: M19.072 Primary osteoarthritis, left ankle and foot (principal); T84.84XA Pain due to internal orthopedic prosthetic devices, implants and grafts, initial encounter; E78.5 Hyperlipidemia, unspecified; K21.9 Gastro-esophageal reflux disease without esophagitis; G47.00 Insomnia, unspecified; L40.8 Other psoriasis; F41.9 Anxiety disorder, unspecified; F32.9 Major depressive disorder, single episode, unspecified; Z79.899 Other long term (current) drug therapy; Z87.891 Personal history of nicotine dependence; Z88.5 Allergy status to narcotic agent
CPT/HCPCS: 20680; 28112; 88300; J0690; J2250; J2370; J3010

== ENCOUNTER → 2020-11-27 | Outpatient (CLI) | payer MEDICARE, MEDICAID ==
[~2020-11-27] MED LIST changes: +CETI10CA2 PO; +HYDR-3713 PO; -LIDOCAINE 1% MDV 20ML VIAL SQ PRN; -LIDOCAINE 2% 100MG/5ML SDV (FOR ANES.) As Ordered ONE; -LR 1,000 ML IV ONE; -MIDAZOLAM INJ 2MG/2ML VIAL (J2250 PER 1MG) As Ordered ONE; +ZYRTTAB8 PO; -ceFAZolin SOD 2 GM in IV 1 EA IV ONE; -fentaNYL 100 MCG/2 ML INJECTION (J3010) As Ordered ONE; -propofoL 200 MG/20 ML VIAL As Ordered ONE
== END ==
LOC: M LABSMTC 09:41
PROVIDERS: ATTEND Anesthesiology
DX: Z20.822 Contact with and (suspected) exposure to COVID-19 (principal)

== ENCOUNTER 2020-12-02 11:34 | Outpatient (CLI) | payer MEDICARE, MEDICAID ==
[2020-12-02] MEDS ORDERED: LIDOCAINE 2% 100MG/5ML SDV (FOR ANES.) ONE (11:35)
[2020-12-02] MEDS ORDERED: propofoL 200 MG/20 ML VIAL ONE (11:35)
[2020-12-02] MEDS ORDERED: MIDAZOLAM INJ 2MG/2ML VIAL (J2250 PER 1MG) As Ordered ONE (12:41)
[2020-12-02 13:29] VITALS: BP 110/67
--- NOTE | 2020-12-02 16:17 | REPVR ---
PROCEDURE INFORMATION: Exam: MR Head Without Contrast Exam date and time: 12/02/2020 12:58 PM Age: 55 years old Clinical indication: Pain; Headache; Migraine; Aura effect not specified; Other: Unknown; Additional info: Injury of blood vessels of head TECHNIQUE: Imaging protocol: MR of the head without contrast. COMPARISON: CT Head without contrast 10/16/2020 3:19 PM FINDINGS: Brain: There are occasional nonspecific foci of high signal abnormality in the haines radiata and centrum semiovale, primarily right-sided. These are best seen on the flair images. These foci may represent areas of gliosis, demyelination, and/or chronic ischemic change. Cerebral ventricles: Normal. No ventriculomegaly. Bones/joints: There is prominence of the right parietal calvarium which corresponds to an area of cortical thickening on prior CT scan. Paranasal sinuses: Normal as visualized. No acute sinusitis. Mastoid air cells: Normal as visualized. No mastoid effusion. Orbital cavity: Unremarkable. Soft tissues: Unremarkable. IMPRESSION: There are occasional nonspecific foci of high signal abnormality in the haines radiata and centrum semiovale, primarily right-sided. These are best seen on the flair images. These foci may represent areas of gliosis, demyelination, and/or chronic ischemic change. Electronically signed by: Mike Hernandez On 12/02/2020 16:17:25 PM
== END 2020-12-02 14:01 | disposition home or self-care (01) ==
LOC: M RAD 11:34
PROVIDERS: ATTEND Physician Assistant Medical
DX: S09 Other and unspecified injuries of head (principal); R51.9 Headache, unspecified; H53.8 Other visual disturbances
CPT/HCPCS: 70551; J2250

== ENCOUNTER → 2021-04-28 | Outpatient (CLI) | payer MEDICARE, MEDICAID ==
[~2021-04-28] MED LIST changes: +OMEP40CA4 PO; -OMEP40CA97 PO
[2021-04-28 12:21] LABS: HEMATOCRIT 43.3 % (36.0-47.0); HEMOGLOBIN 14.4 g/dl (12.0-15.5); MEAN CORPUSCULAR HGB CONC 33.3 g/dl (32.0-36.5); MEAN CORPUSCULAR VOLUME 96.2 fl (80.0-96.0); PLATELET COUNT, AUTOMATED 258 10^3/uL (150-450); WHITE BLOOD COUNT 9.6 10^3/uL (4.0-10.0)
[2021-04-28 12:53] LABS: HEMOGLOBIN A1c 5.5 %
[2021-04-28 13:06] LABS: ALBUMIN 3.4 GM/DL (3.2-5.2); ALT/SGPT 40 U/L (12-78); BILIRUBIN,DIRECT 0.2 MG/DL (0.0-0.2); BILIRUBIN,TOTAL 0.6 MG/DL (0.2-1.0); BLOOD UREA NITROGEN 15 MG/DL (7-18); CALCIUM LEVEL 8.9 MG/DL (8.5-10.1); CARBON DIOXIDE LEVEL 29 MEQ/L (21-32); CHLORIDE LEVEL 107 MEQ/L (98-107); CHOLESTEROL LEVEL 171 MG/DL (<200); CHOLESTEROL RISK RATIO 3.717 (<5); CREATININE FOR GFR 0.68 MG/DL (0.55-1.30); FREE T4 1.14 NG/DL (0.76-1.46); GLOMERULAR FILTRATION RATE > 60.0 (>51); GLUCOSE, FASTING 90 MG/DL (70-100); HDL CHOLESTEROL 46 MG/DL (>40); LDL CHOLESTEROL 99 MG/DL (<100); NON-HDL-C 125 MG/DL; POTASSIUM SERUM 4.7 MEQ/L (3.5-5.1); SODIUM LEVEL 140 MEQ/L (136-145); TOTAL 25(OH) VITAMIN D 43.7 NG/ML (30.0-100.0); TOTAL PROTEIN 7.8 GM/DL (6.4-8.2); TRIGLYCERIDES LEVEL 129 MG/DL (<150)
[2021-04-28 14:47] LABS: ATYPICAL LYMPH 7 % (0-5); BASOPHILS 1 % (0-1); EOSINOPHILS 2 % (0-3); LYMPHOCYTES 44 % (16-44); MONOCYTES 4 % (0-5); NEUTROPHILS 42 % (28-66); PLATELET ESTIMATE NORMAL (NORMAL)
--- NOTE | 2021-04-29 08:32 | ECGEPIP ---
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 other than misplaced precordial leads there may be slightly more prominent inferior repolarization abnormalities despite the slower rate from 08/06/20. Clinical correlation advised Electronically Signed on 04-29-2021 8:32:45 EDT by Reji Bliss
== END ==
LOC: M LAB 11:25
PROVIDERS: ATTEND Nurse Practitioner Psychiatric/Mental Health
DX: Z51.81 Encounter for therapeutic drug level monitoring (principal); Z79.899 Other long term (current) drug therapy; F33.1 Major depressive disorder, recurrent, moderate; Z13.1 Encounter for screening for diabetes mellitus

== ENCOUNTER → 2021-06-29 | Outpatient (CLI) | payer MEDICARE, MEDICAID ==
[2021-06-29 14:20] LABS: HEMATOCRIT 41.8 % (36.0-47.0); MEAN CORPUSCULAR HEMOGLOBIN 32.5 pg (27.0-33.0); MEAN CORPUSCULAR HGB CONC 33.5 g/dl (32.0-36.5); PLATELET COUNT, AUTOMATED 286 10^3/uL (150-450); RED BLOOD COUNT 4.31 10^6/uL (4.00-5.40); WHITE BLOOD COUNT 10.7 10^3/uL (4.0-10.0)
[2021-06-29 14:43] LABS: ALBUMIN 3.1 GM/DL (3.2-5.2); ALT/SGPT 27 U/L (12-78); BILIRUBIN,DIRECT 0.1 MG/DL (0.0-0.2); BILIRUBIN,TOTAL 0.5 MG/DL (0.2-1.0); BLOOD UREA NITROGEN 14 MG/DL (7-18); CALCIUM LEVEL 9.3 MG/DL (8.5-10.1); CARBON DIOXIDE LEVEL 30 MEQ/L (21-32); CHLORIDE LEVEL 107 MEQ/L (98-107); CHOLESTEROL LEVEL 197 MG/DL (<200); CHOLESTEROL RISK RATIO 4.282 (<5); CREATININE FOR GFR 0.86 MG/DL (0.55-1.30); GLOMERULAR FILTRATION RATE > 60.0 (>51); GLUCOSE, FASTING 87 MG/DL (70-100); HDL CHOLESTEROL 46 MG/DL (>40); LDL CHOLESTEROL 115 MG/DL (<100); NON-HDL-C 151 MG/DL; POTASSIUM SERUM 4.6 MEQ/L (3.5-5.1); SODIUM LEVEL 142 MEQ/L (136-145); TOTAL PROTEIN 7.3 GM/DL (6.4-8.2); TRIGLYCERIDES LEVEL 180 MG/DL (<150)
[2021-06-29 14:53] LABS: HEPATITIS B SURFACE ANTIBODY NEGATIVE (POSITIVE)
[2021-06-29 14:54] LABS: ATYPICAL LYMPH 8 % (0-5); BASOPHILS 3 % (0-1); EOSINOPHILS 2 % (0-3); LYMPHOCYTES 46 % (16-44); MONOCYTES 5 % (0-5); NEUTROPHILS 33 % (28-66); PLATELET ESTIMATE NORMAL (NORMAL)
[2021-06-29 14:55] LABS: ANISOCYTOSIS 1+
[2021-06-29 15:02] LABS: HEPATITIS B SURFACE ANTIGEN NEGATIVE (NEGATIVE)
[2021-06-29 15:31] LABS: HEPATITIS C VIRUS ABY INDEX < 0.0 INDEX (<0.8)
== END ==
LOC: M LAB 12:27
PROVIDERS: ATTEND Physician Assistant
DX: L40.0 Psoriasis vulgaris (principal)

== ENCOUNTER → 2022-01-04 | Outpatient (CLI) | payer MEDICARE, MEDICAID, OTHER ==
[~2022-01-04] MED LIST changes: -CYMB60CA3 PO; +CYMB60CA4 PO; +DIVA125C6 PO; -DIVA1CAP PO
== END ==
LOC: M PAIN 09:00
PROVIDERS: ATTEND Nurse Practitioner Family
DX: M50.10 Cervical disc disorder with radiculopathy, unspecified cervical region (principal); Z87.891 Personal history of nicotine dependence; Z88.5 Allergy status to narcotic agent; Z88.7 Allergy status to serum and vaccine; Z79.899 Other long term (current) drug therapy

== ENCOUNTER → 2022-05-20 | Outpatient (CLI) | payer MEDICARE, MEDICAID | LOC: M PAIN 11:15 | PROVIDERS: ATTEND Nurse Practitioner Family | DX: Z53.21 Procedure and treatment not carried out due to patient leaving prior to being seen by health care provider (principal) ==

== ENCOUNTER → 2022-06-09 | Outpatient (CLI) | payer MEDICARE, MEDICAID ==
[~2022-06-09] MED LIST changes: +CEFD300C41 PO; +DOXE10CA; +LISI10TA22; +OFLOSO OTIC; +OXYC-517
[2022-06-09 12:44] LABS: RED BLOOD COUNT 4.79 10^6/uL (4.00-5.40); WHITE BLOOD COUNT 11.2 10^3/uL (4.0-10.0)
[2022-06-09 12:45] LABS: BASO # 0.1 10^3/uL (0.0-0.2); BASO % 0.9 % (0.0-1.0); EOS # 0.2 10^3/uL (0.0-0.5); EOS % 1.7 % (0.0-3.0); HEMOGLOBIN 15.4 g/dl (12.0-15.5); LYMPH # 4.8 10^3/uL (1.5-5.0); LYMPH % 42.6 % (24.0-44.0); MEAN CORPUSCULAR HEMOGLOBIN 32.2 pg (27.0-33.0); MEAN CORPUSCULAR HGB CONC 33.5 g/dl (32.0-36.5); MONO # 0.8 10^3/uL (0.0-0.8); NEUTROPHILS # 5.3 10^3/uL (1.5-8.5); NEUTROPHILS % 47.5 % (36.0-66.0); PLATELET COUNT, AUTOMATED 271 10^3/uL (150-450)
[2022-06-09 13:05] LABS: ERYTHROCYTE SEDIMENTATION RATE 15 mm/hr (0-30)
[2022-06-09 13:43] LABS: ALBUMIN 3.5 GM/DL (3.2-5.2); ALT/SGPT 26 U/L (12-78); BILIRUBIN,TOTAL 0.5 MG/DL (0.2-1.0); BLOOD UREA NITROGEN 20 MG/DL (7-18); CALCIUM LEVEL 9.6 MG/DL (8.5-10.1); CARBON DIOXIDE LEVEL 28 MEQ/L (21-32); CHLORIDE LEVEL 103 MEQ/L (98-107); CREATININE FOR GFR 0.88 MG/DL (0.55-1.30); FREE THYROXINE INDEX 3.2 % (1.3-4.8); GLOMERULAR FILTRATION RATE > 60.0 (>51); GLUCOSE, FASTING 90 MG/DL (70-100); POTASSIUM SERUM 4.4 MEQ/L (3.5-5.1); RHEUMATOID FACTOR QUANT < 10.0 IU/ML (<15.0); SODIUM LEVEL 136 MEQ/L (136-145); T UPTAKE 34 % (30-39); THYROXINE (T4) 9.5 UG/DL (4.5-12.0); TOTAL PROTEIN 8.2 GM/DL (6.4-8.2)
[2022-06-09 14:17] LABS: TOTAL 25(OH) VITAMIN D 35.7 NG/ML (30.0-100.0); VITAMIN B12 LEVEL 528 PG/ML (247-911)
== END ==
LOC: M LAB 11:41
PROVIDERS: ATTEND Psychiatry & Neurology Neurology
DX: R51.9 Headache, unspecified (principal); Z79.899 Other long term (current) drug therapy

== ENCOUNTER 2022-06-10 11:25 | Emergency (ER) | payer MEDICARE, MEDICAID ==
[~2022-06-10] VITALS: Ht 160 cm; Wt 89.0 kg
[~2022-06-10 11:25] MED LIST changes: -CEFD300C41 PO; -DOXE10CA; -LISI10TA22; -OFLOSO OTIC; -OXYC-517
[2022-06-10 11:27] VITALS: BP 135/1
[2022-06-10] MEDS ORDERED: LISI10TA22 (12:25)
[2022-06-10] MEDS ORDERED: DOXE10CA (12:25)
[2022-06-10] MEDS ORDERED: OXYC-517 (12:25)
[2022-06-10] MEDS ORDERED: CEFD300C41 PO (12:27)
[2022-06-10] MEDS ORDERED: OFLOSO OTIC (12:27)
== END 2022-06-10 12:34 | disposition home or self-care (01) ==
LOC: M ED 11:25
DX: H66.001 Acute suppurative otitis media without spontaneous rupture of ear drum, right ear (principal); Z79.899 Other long term (current) drug therapy; Z91.89 Other specified personal risk factors, not elsewhere classified; Z88.5 Allergy status to narcotic agent

== ENCOUNTER → 2022-07-07 | Outpatient (CLI) | payer MEDICARE, MEDICAID ==
[~2022-07-07] MED LIST changes: +CEFD300C41 PO; +DOXE10CA; +LISI10TA22; +OFLOSO OTIC; +OXYC-517
== END ==
LOC: M LAB 14:39
PROVIDERS: ATTEND Allergy & Immunology Allergy
DX: T78.1XXA Other adverse food reactions, not elsewhere classified, initial encounter (principal)

== ENCOUNTER → 2023-01-05 | Outpatient (REF) | payer MEDICARE, MEDICAID | LOC: EEVIPCON 12:58 → M LAB REF 12:58 | PROVIDERS: ATTEND Physician Assistant Medical | DX: H92.11 Otorrhea, right ear (principal) ==

== ENCOUNTER 2023-02-21 09:52 | Day surgery (SDC) | payer MEDICARE, MEDICAID ==
[~2023-02-21] VITALS: Ht 160 cm; Wt 87.3 kg
[~2023-02-21 09:52] MED LIST changes: +AIMO70IN2; +AZEL1SPR3; +DOXE25CA; +FLUT50SP17
[2023-02-21 12:40] VITALS: BP 174/87
== END 2023-02-21 12:53 | disposition home or self-care (01) ==
LOC: M OPP 09:52
PROVIDERS: ATTEND Internal Medicine Gastroenterology
DX: Z12.11 Encounter for screening for malignant neoplasm of colon (principal); Z86.010 Personal history of colon polyps; K63.5 Polyp of colon; K57.30 Diverticulosis of large intestine without perforation or abscess without bleeding; K64.8 Other hemorrhoids; E78.5 Hyperlipidemia, unspecified; K21.9 Gastro-esophageal reflux disease without esophagitis; M19.90 Unspecified osteoarthritis, unspecified site; L40.9 Psoriasis, unspecified; F41.9 Anxiety disorder, unspecified; F32.A Depression, unspecified; G43.909 Migraine, unspecified, not intractable, without status migrainosus; G47.00 Insomnia, unspecified; G47.30 Sleep apnea, unspecified; Z88.5 Allergy status to narcotic agent; Z91.09 Other allergy status, other than to drugs and biological substances; Z79.899 Other long term (current) drug therapy; Z87.891 Personal history of nicotine dependence; Z80.1 Family history of malignant neoplasm of trachea, bronchus and lung; Z80.8 Family history of malignant neoplasm of other organs or systems

== ENCOUNTER → 2024-01-18 | Outpatient (CLI) | payer MEDICARE, MEDICAID ==
[~2024-01-18] MED LIST changes: -BIOT50004 PO; +BIOT5CAP8 PO; +CEFD1CAP9 PO; -CEFD300C41 PO; -FLUT50SP17; +FLUTISP
[2024-01-18 15:48] LABS: BASO # 0.1 10^3/uL (0.0-0.2); BASO % 0.7 % (0.0-1.0); EOS # 0.2 10^3/uL (0.0-0.5); EOS % 2.1 % (0.0-3.0); HEMATOCRIT 40.1 % (36.0-47.0); HEMOGLOBIN 13.9 g/dl (12.0-15.5); LYMPH # 5.1 10^3/uL (1.5-5.0); LYMPH % 45.8 % (24.0-44.0); MEAN CORPUSCULAR HEMOGLOBIN 32.7 pg (27.0-33.0); MEAN CORPUSCULAR HGB CONC 34.7 g/dl (32.0-36.5); MEAN CORPUSCULAR VOLUME 94.4 fl (80.0-96.0); MONO # 0.7 10^3/uL (0.0-0.8); MONO % 6.5 % (2.0-8.0); NEUTROPHILS % 44.7 % (36.0-66.0); PLATELET COUNT, AUTOMATED 275 10^3/uL (150-450); RED BLOOD COUNT 4.25 10^6/uL (4.00-5.40); WHITE BLOOD COUNT 11.1 10^3/uL (4.0-10.0)
[2024-01-18 16:16] LABS: ALBUMIN 3.2 G/DL (3.2-5.2); ALKALINE PHOSPHATASE 81 U/L (46-116); ALT/SGPT 20 U/L (7.0-40); AST/SGOT 9 U/L (<34); BILIRUBIN,TOTAL 0.4 MG/DL (0.3-1.2); BLOOD UREA NITROGEN 19 MG/DL (9-23); CALCIUM LEVEL 8.9 MG/DL (8.5-10.1); CARBON DIOXIDE LEVEL 28 MMOL/L (20-31); CHLORIDE LEVEL 105 MMOL/L (98-107); CREATININE FOR GFR 0.98 MG/DL (0.55-1.30); GLOMERULAR FILTRATION RATE > 60.0 (>51); GLUCOSE, FASTING 92 MG/DL (60-100); POTASSIUM SERUM 4.7 MMOL/L (3.5-5.1); SODIUM LEVEL 137 MMOL/L (136-145)
[2024-01-18 16:28] LABS: HEPATITIS B SURFACE ANTIBODY NEGATIVE (POSITIVE)
[2024-01-18 16:53] LABS: HIV 1&2 SCREEN NEGATIVE (NEGATIVE)
[2024-01-18 17:01] LABS: HEPATITIS C VIRUS ABY INDEX < 0.02 INDEX (<0.8)
== END ==
LOC: M LAB 14:48
PROVIDERS: ATTEND Physician Assistant
DX: Z79.899 Other long term (current) drug therapy (principal); Z11.59 Encounter for screening for other viral diseases; Z72.89 Other problems related to lifestyle

== ENCOUNTER 2024-05-20 14:56 | Emergency (ER) | payer MEDICARE ==
[~2024-05-20] VITALS: Ht 160 cm; Wt 82.6 kg
[2024-05-20] MEDS ORDERED: CLON0.5T2 (15:10)
[2024-05-20] MEDS ORDERED: MIRT-10 (15:10)
[2024-05-20] MEDS ORDERED: APRE30TA3 (15:10)
[2024-05-20] MEDS: IBUPROFEN 600MG TAB PO ONE (17:04)
[2024-05-20 17:22] VITALS: BP 122/75; TEMP 97.7; O2SAT 97
== END 2024-05-20 17:31 | disposition home or self-care (01) ==
LOC: M ED 14:56
DX: M19.031 Primary osteoarthritis, right wrist (principal); M25.531 Pain in right wrist; I10 Essential (primary) hypertension; F51.01 Primary insomnia; K21.9 Gastro-esophageal reflux disease without esophagitis; F41.9 Anxiety disorder, unspecified; G43.909 Migraine, unspecified, not intractable, without status migrainosus; F12.10 Cannabis abuse, uncomplicated; Z87.891 Personal history of nicotine dependence; Z88.5 Allergy status to narcotic agent; Z91.09 Other allergy status, other than to drugs and biological substances; Z79.02 Long term (current) use of antithrombotics/antiplatelets; Z79.811 Long term (current) use of aromatase inhibitors; Z79.899 Other long term (current) drug therapy

== ENCOUNTER → 2024-08-14 | Outpatient (CLI) | payer MEDICARE ==
[~2024-08-14] MED LIST changes: +APRE30TA3; +CLON0.5T2; +MIRT-10
== END ==
LOC: M RAD 12:56
PROVIDERS: ATTEND Surgery
DX: R22.0 Localized swelling, mass and lump, head (principal)

== ENCOUNTER → 2024-11-12 | Outpatient (CLI) | payer MEDICARE, MEDICAID ==
[2024-11-14 12:42] LABS: QuantiFERON-TB Gold Plus NEGATIVE (NEGATIVE)
== END ==
LOC: M LAB 13:41
PROVIDERS: ATTEND Physician Assistant
DX: Z79.899 Other long term (current) drug therapy (principal)

== ENCOUNTER 2025-04-28 05:38 | Emergency (ER) | payer MEDICARE, MEDICAID ==
[~2025-04-28] VITALS: Ht 160 cm; Wt 76.9 kg
[~2025-04-28 05:38] MED LIST changes: +AMIT10TA11 PO; -AMIT10TA7 PO
[2025-04-28] MEDS: METHOCARBAMOL 1,000 MG/10 ML VIAL IV ONE (06:53)
[2025-04-28] MEDS: dexAMETHasone 4 MG/ML 1 ML VIAL IV ONE (06:53)
[2025-04-28] MEDS: KETOROLAC 30 MG/ML 1 ML VIAL IV ONE (06:53)
[2025-04-28] MEDS: ACETAMINOPHEN *IV* 1,000 MG in IV 1 EA IV ONE (08:35)
[2025-04-28 08:39] VITALS: BP 128/74
[2025-04-28 08:53] VITALS: TEMP 97.3; O2SAT 96
[2025-04-28] MEDS ORDERED: METH-1164 PO (08:54)
== END 2025-04-28 09:09 | disposition home or self-care (01) ==
LOC: M ED 05:38
DX: M54.31 Sciatica, right side (principal); G43.909 Migraine, unspecified, not intractable, without status migrainosus; M54.50 Low back pain, unspecified; F17.200 Nicotine dependence, unspecified, uncomplicated; F12.10 Cannabis abuse, uncomplicated; Z88.5 Allergy status to narcotic agent; Z91.048 Other nonmedicinal substance allergy status; Z79.02 Long term (current) use of antithrombotics/antiplatelets; Z79.899 Other long term (current) drug therapy
CPT/HCPCS: 96365; 96375; 99284; J0131; J1100; J1885; J2800

== ENCOUNTER 2025-05-05 13:30 | Emergency (ER) | payer MEDICARE, MEDICAID ==
[~2025-05-05] VITALS: Ht 160 cm; Wt 81.6 kg
[~2025-05-05 13:30] MED LIST changes: +METH-1164 PO
[2025-05-05 16:13] LABS: BASO # 0.1 10^3/uL (0.0-0.2); BASO % 0.6 % (0.0-1.0); EOS # 0.2 10^3/uL (0.0-0.5); EOS % 1.6 % (0.0-3.0); LYMPH # 4.0 10^3/uL (1.5-5.0); LYMPH % 32.2 % (24.0-44.0); MONO # 0.6 10^3/uL (0.0-0.8); MONO % 4.4 % (2.0-8.0); NEUTROPHILS # 7.6 10^3/uL (1.5-8.5); NEUTROPHILS % 60.8 % (36.0-66.0); PLATELET COUNT, AUTOMATED 329 10^3/uL (150-450)
[2025-05-05] MEDS: ACETAMINOPHEN *IV* 1,000 MG in IV 1 EA IV ONE (16:17)
[2025-05-05 16:18] LABS: C REACTIVE PROTEIN QUANTITATIV 0.69 MG/DL (<1.0)
[2025-05-05 16:19] LABS: CALCIUM LEVEL 9.2 MG/DL (8.3-10.6); CARBON DIOXIDE LEVEL 26 MMOL/L (20-31); CHLORIDE LEVEL 103 MMOL/L (98-107); CREATININE FOR GFR 0.80 MG/DL (0.55-1.30); ERYTHROCYTE SEDIMENTATION RATE 29 mm/hr (0-30); GLOMERULAR FILTRATION RATE 84.3 (>45); POTASSIUM SERUM 4.7 MMOL/L (3.5-5.1); SODIUM LEVEL 139 MMOL/L (136-145)
[2025-05-05] MEDS: KETOROLAC 30 MG/ML 1 ML VIAL IV ONE (17:21)
[2025-05-05] MEDS ORDERED: OXYC-1 PO (17:30)
[2025-05-05 17:45] VITALS: BP 164/89; TEMP 98; O2SAT 94
== END 2025-05-05 18:06 | disposition home or self-care (01) ==
LOC: M ED 13:30
DX: M54.41 Lumbago with sciatica, right side (principal); F41.9 Anxiety disorder, unspecified; F32.A Depression, unspecified; I10 Essential (primary) hypertension; E78.5 Hyperlipidemia, unspecified; F10.10 Alcohol abuse, uncomplicated; Z87.891 Personal history of nicotine dependence; Z88.5 Allergy status to narcotic agent; Z91.048 Other nonmedicinal substance allergy status; Z79.02 Long term (current) use of antithrombotics/antiplatelets; Z79.899 Other long term (current) drug therapy
CPT/HCPCS: 80048; 84145; 85025; 85652; 86140; 96365; 96375; 96376; 99284; J0131; J1885; J3010